=== PATIENT | female | born 1945 | race Caucasian/White ===

== ENCOUNTER → 2016-08-11 | Outpatient (CLI) | payer MEDICARE, BC ==
[~2016-08-11] MED LIST: FISH OIL CONC1000 MG PO; HCTZ 25MG25 MG PO; VITAMIN D
== END ==
LOC: MC.RAD 09:58
DX: Z12.31 Encounter for screening mammogram for malignant neoplasm of breast (principal)

== ENCOUNTER → 2017-09-24 | Outpatient (CLI) | payer MEDICARE, BC | LOC: MC.RAD 09:52 | DX: Z12.31 Encounter for screening mammogram for malignant neoplasm of breast (principal) ==

== ENCOUNTER → 2018-03-03 | Outpatient (CLI) | payer MEDICARE, BC | LOC: COL.RAD 03-01 14:00 | DX: N20.0 Calculus of kidney (principal); Z87.442 Personal history of urinary calculi ==

== ENCOUNTER → 2018-12-08 | Outpatient (CLI) | payer MEDICARE, BC | LOC: MC.RAD 14:12 | DX: Z12.31 Encounter for screening mammogram for malignant neoplasm of breast (principal) ==

== ENCOUNTER → 2020-05-08 | Outpatient (CLI) | payer MEDICARE, BC | LOC: MC.RAD 15:00 | DX: Z12.31 Encounter for screening mammogram for malignant neoplasm of breast (principal) ==

== ENCOUNTER → 2022-02-12 | Outpatient (CLI) | payer MEDICARE, BC | LOC: COL.RAD 07:56 | DX: M48.061 Spinal stenosis, lumbar region without neurogenic claudication (principal); M43.16 Spondylolisthesis, lumbar region; M51.36 Other intervertebral disc degeneration, lumbar region ==

== ENCOUNTER 2023-10-18 10:27 | Outpatient (RCR) | payer MEDICARE ==
[~2023-10-18 10:27] MED LIST changes: +ASPIRIN E.C. 8181 MG PO; +CRESTOR 10MG10 MG PO; +DYAZIDE 25 MG-31 CAP PO; -FISH OIL CONC1000 MG PO; +OMEGA-3 1000 MG1 CAP PO; +PROBIOTIC ACID1 EAC3 PO; +TYLENOL 500MG500 MG PO; +ULTRAM 50MG TAB50 MG PO; +UROCIT-K 5540 MG/TAB PO; +XANAX .25M0.25 MG/TA PO; +ZYLOPRIM 100MG100 MG PO
== END 2023-10-18 15:30 | disposition home or self-care (01) ==
LOC: PT.GENESIS 10:27
DX: Z01.818 Encounter for other preprocedural examination (principal); M25.552 Pain in left hip

== ENCOUNTER 2023-11-23 11:15 | Outpatient (RCR) | payer MEDICARE | END 2023-11-24 | disposition home or self-care (01) | LOC: PT.GENESIS | DX: Z96.642 Presence of left artificial hip joint (principal) ==

== ENCOUNTER 2023-12-23 10:45 | Outpatient (RCR) | payer MEDICARE | END 2023-12-25 | disposition home or self-care (01) | LOC: PT.GENESIS | DX: Z96.642 Presence of left artificial hip joint (principal) ==

== ENCOUNTER 2024-01-12 14:30 | Outpatient (RCR) | payer MEDICARE | END 2024-01-24 16:02 | disposition home or self-care (01) | LOC: PT.GENESIS 14:30 | DX: Z96.642 Presence of left artificial hip joint (principal) ==